=== PATIENT | female | born 1975 | race Caucasian/White ===

== ENCOUNTER 2017-01-13 08:14 | Observation (INO) | payer OTHER ==
[~2017-01-13 08:14] MED LIST: ACETAMINOPHEN 500 MG TAB PO ONE; PREGABALIN 150 MG CAP PO ONE; SCOPOLAMINE HYDROBROMIDE 1.5 MG PATCH TD ONE; TRANEXAMIC ACID 1,000 MG in NS 100 ML IV ONE; ceFAZolin 2 GM/DEXTROSE 100 ML IV ONE
[2017-01-13] MEDS ORDERED: TRANEXAMIC ACID 1,000 MG in NS 100 ML IV ONE (09:00)
[2017-01-13] MEDS ORDERED: BUPIVACAINE/EPI 0.25% 30 ML SDV ONE (09:18)
[2017-01-13] MEDS ORDERED: EPINEPHrine 30 MG/30 ML MDV ONE (09:19)
[2017-01-13] MEDS ORDERED: ACETAMINOPHEN 500 MG TAB ONE (10:07)
[2017-01-13] MEDS ORDERED: SCOPOLAMINE HYDROBROMIDE 1.5 MG PATCH TD ONE (10:08)
[2017-01-13] MEDS ORDERED: CEFAZOLIN 2 GM/DEXTROSE/100 ML BAG IV ONE (10:08)
[2017-01-13] MEDS ORDERED: PREGABALIN 150 MG CAP ONE (10:08)
[2017-01-13 10:50] LABS: HEMATOCRIT 40.6 % (38.0-47.0); HEMOGLOBIN 13.4 g/dL (12.6-16.3)
[2017-01-13] MEDS ORDERED: ONDANSETRON 4 MG/2 ML VIAL ONE ×2 (13:27→14:57)
[2017-01-13] MEDS ORDERED: PROPOFOL 200 MG/20 ML VIAL ONE (13:43)
[2017-01-13] MEDS ORDERED: MIDAZOLAM 2 MG/2 ML VIAL ONE (13:43)
[2017-01-13] MEDS ORDERED: fentaNYL 100 MCG/2 ML INJ ONE ×3 (13:43→16:30)
[2017-01-13] MEDS ORDERED: ONDANSETRON 4 MG/2 ML VIAL IVP ONE (13:45)
[2017-01-13] MEDS ORDERED: ROCURONIUM 50 MG/5 ML VIAL ONE (14:57)
[2017-01-13] MEDS ORDERED: DEXAMETHASONE 4 MG/ML VIAL ONE (14:57)
[2017-01-13] MEDS ORDERED: SUGAMMADEX SODIUM 200 MG/2 ML VIAL IVP ONE (14:58)
[2017-01-13] MEDS ORDERED: KETOROLAC 30 MG/1 ML SDV ONE (17:08)
[2017-01-13] MEDS ORDERED: DIAZEPAM 5 MG TAB ONE (17:08)
[2017-01-13] MEDS ORDERED: HYDROmorphONE/DILAUDID 1 MG/ML SYR ONE (17:08)
[2017-01-13] MEDS ORDERED: DIAZEPAM 2 MG TAB PO PRN (17:11)
[2017-01-13] MEDS ORDERED: NAPROXEN SODIUM 220 MG TAB PO PRN (17:12)
[2017-01-13] MEDS ORDERED: HYDROmorphONE/DILAUDID 6 MG/30 ML PCA IV PRN (17:34)
[2017-01-13] MEDS ORDERED: NALOXONE HCL 0.4 MG/ML INJ IVP PRN (17:34)
[2017-01-14] MEDS ORDERED: HYDROmorphONE/DILAUDID 1 MG/ML SYR IVP PRN ×2 (07:57→08:59)
--- NOTE | 2017-01-14 08:04 | SUROPNOTE ---
ALTHEA Operative Report - Surgery OPERATION NOTE~on Leanne Grant Diagnosis: 1. Right~Femoroacetabular impingement (MICHELLE) Cam type, with~resultant labral tear 2. Right~Hip Dyplasia Indication: Failure to obtain satisfactory results with long standing conservative measures. Operation:~Right~Arthroscopic Labral repair, CAM resection, Synovectomy, Capsular repair Surgeon: ~~~~~~~~~~~~~~~~~~~~~MD Molly Cline Assistant:~~~~~~~~~~~~~Alonso NASSAR Anaesthetic:~~~~~~~~~~~~~~~~~General Findings~~Right~Hip: Labrum: hypertrophic, torn 2-4, yelloish degneration Acetabulum: Cartilage damage grade 1~extending around chondrolabral junction Fovea: Partial tear of LT Femoral Head: Normal cartilage minimal fraying Synovium: mild moderate~synovitis Peripheral Compartment: Anterolateral CAM between 12~Oclock superiorly and 5~O clock anteriorly Procedure: Supine on operating table. General anaesthetic. Antibiotics given. Standard traction set up, without perineal post. A spinal needle was guided to the femoral head neck junction and traction gradually applied with the joint vented. Local anesthetic infiltrated into the skin around the portals. Once 13mm of distraction was achieved the hip needle was then passed into the joint staying as close to the femoral head as possible. A Nytenol wire was passed through the hip needle ensuring that it passed all the way to the fovea to confirm central placement of the needle. Skin was incised and then the portals sequentially dilated to 7 mm. Switching stick inserted and 30 scope passed over the top. Under dry scope conditions the anterior portal was created by passing the hip needle into the joint under direct vision. Again this was dilated up to 7 mm and the slotted canule was inserted. The saline was then turned on and the joint irrigated. The joint was carefully inspected and photographed with findings as above. The arthroscope was switched to the 70 scope to complete the inspection. A longitudinal intra portal capsulotomy was then performed using osage blade and the 50 Arthrocare wand to connect the two portals. Central Compartment Intervention: Synovectomy was performed. ~The labrum was then repaired~with 1~peek anchor insideout, achieving good anatomical rim fixation. LT was treated with RF wand to shrink and stabilize reactive tissue.~ Peripheral Compartment Intervention: A box-shaped capsulotomy was made with the assistance of SpeedStitch traction suture. This allowed traction on the capsule and a good view of the femoral neck with smaller capsulotomy. The articular margin where sphericity was lost was marked with the Arthrocare wand under X-ray control. Bone lateral to this was removed with the the balwinder. Portals were switched to deal with the superior headneck junction. Care was taken not to stray posterior and laterally in view of the location of the retinacular vessels. The cam lesion was addressed from 12~to 5~Oclock. A dynamic impingement test was undertaken and vision with 90 of flexion and 10 of internal rotation to confirm that there was no bony or soft tissue impingement or deformation of the labrum. ~Good clearance was obtained with good labral seal. The joint was thoroughly irrigated of any loose debris and the anterior capsule was repaired with 2~No.1 vicryl stitches, closing 70% of the capsulotomy. The skin was then closed with Nylon. Padded dressing was applied. After surgery, Leanne~moved both lower limbs and had no NV compromise. Evaluation under Anesthesia: Pre: IR 90 ER 90 ABD Flexion Right 15 45 45 110 Left 25 45 40 110 Post op instructions: 1. Non~weight bearing crutches for 2~weeks 2. Pain killers as prescribed 3. Follow up visit with me, as scheduled, where a rehab protocol would be discussed 4. Avoid hip external rotation for 4 weeks 5. ~~25 days of NSAIDS need to be taken in order to prevent the possible formation of HO Kind regards, ~~ Dr. Franko Sawyer
[2017-01-14] MEDS: ONDANSETRON 4 MG/2 ML VIAL IVP PRN (08:18)
[2017-01-14] MEDS ORDERED: PROMETHAZINE HCL 25 MG/ML INJ IVP PRN ×2 (09:00)
[2017-01-14] MEDS: OXYCODONE/APAP 5/325 TAB PO PRN ×2 (10:50→16:43)
[2017-01-14 11:36] LABS: ANION GAP 8 mEq/L (8-16); CARBON DIOXIDE 22 mEq/l (22-31); CHLORIDE 104 mEq/L (97-110); CREATININE 0.7 mg/dL (0.6-1.0); GLOMERULAR FILTRATION RATE > 60; GLUCOSE 96 mg/dL (70-100); SODIUM 134 mEq/L (134-144)
[2017-01-14] MEDS: ONDANSETRON DISINTEGRATING 4 MG TAB PO PRN ×2 (11:39→15:58)
[2017-01-14] MEDS ORDERED: POLYETHYLENE GLYCOL 3350 17 GM PKT PO PRN (18:29)
[2017-01-14] MEDS ORDERED: MAGNESIUM HYDROXIDE 30 ML UDCUP PO PRN (18:29)
[2017-01-14] MEDS ORDERED: LACTULOSE 20 GM/30 ML UDCUP PO PRN (18:29)
[2017-01-14] MEDS ORDERED: BISACODYL 10 MG SUPP PR PRN (18:29)
[2017-01-14] MEDS: HYDROmorphONE/DILAUDID 2 MG TAB PO PRN ×2 (19:01→23:08)
[2017-01-14] MEDS: ACETAMINOPHEN 325 MG TAB PO PRN (19:16)
[2017-01-14] MEDS: SENNOSIDES/DOCUSATE SODIUM TAB PO SCH (19:16)
--- NOTE | 2017-01-14 21:02 | SOAPPROG ---
GEORGES Progress Note Assessment/Plan: Assessment: 1 day post op Right hip arthroscopy Plan: will discontinue Percocet and add Dilaudid 2mg Bowel Protocol D/C tomorrow IRVING on Monday01/14/17 20:53 Subjective: Yury has had nausea and pain most of the day. She thinks the Percocet is causing nausea and is not controlling her pain. She is not ready to be discharged today. She denies any cp or sob. Objective: Vital Signs Temp Pulse Resp BP Pulse Ox 36.9 C 65 18 103/62 100 01/14/17 19:32 01/14/17 19:32 01/14/17 19:32 01/14/17 19:32 01/14/17 19:32 Laboratory Results 01/13/17 10:40 01/14/17 11:04 01/13/17 01/14/17 01/15/17 05:59 05:59 05:59 Intake Total 2049 1000 Output Total 1951 525 Balance 98 475 Well appearing in NAD Right hip: dressings clean dry intact some ecchymosis and edema NVI distally - Pending Discharge Pending Discharge Within 24 Hours: Yes Pending Discharge Date: 01/15/17 Pending Discharge Time: 11:00 ICD10 Worksheet Patient Problems: Problems Problem Status Onset Post-operative pain Acute - ICD10 Problem Qualifiers (1) Post-operative pain
[2017-01-15] MEDS: HYDROmorphONE/DILAUDID 2 MG TAB PO PRN ×2 (04:15→10:14)
[2017-01-15] MEDS: ACETAMINOPHEN 325 MG TAB PO PRN ×2 (06:56→12:58)
[2017-01-15 07:30] VITALS: BP 122/68; PULSE 65; RESP 14; TEMP 98.2; O2SAT 97
[2017-01-15] MEDS: SENNOSIDES/DOCUSATE SODIUM TAB PO SCH ×2 (07:49→12:57)
[2017-01-15] MEDS: ONDANSETRON 4 MG/2 ML VIAL IVP PRN (07:53)
[2017-01-15] MEDS: ONDANSETRON DISINTEGRATING 4 MG TAB PO PRN (10:14)
== END 2017-01-15 13:02 | disposition home or self-care (01) ==
LOC: FSGY 08:14 → F3N 17:19
PROVIDERS: ADMIT Orthopaedic Surgery Sports Medicine; ATTEND Orthopaedic Surgery Sports Medicine
PROC: 0SQ94ZZ Repair Right Hip Joint, Percutaneous Endoscopic Approach (ICD-10-PCS; principal; 2017-01-13 12:00)
DX: M25.851 Other specified joint disorders, right hip (principal); M24.151 Other articular cartilage disorders, right hip
CPT/HCPCS: 29914; 29916; 76001; 97116; 97161; C1769; G0378; C1713; J0690; J1100; J1170; J1885; J2250; J2405; J2704; J3010

== ENCOUNTER 2017-01-16 11:00 | Inpatient (IN) | payer OTHER ==
[2017-01-16] MEDS ORDERED: fentaNYL 100 MCG/2 ML INJ IVP PRN ×3 (12:01→17:51)
[2017-01-16] MEDS ORDERED: fentaNYL 100 MCG/2 ML INJ ONE ×2 (12:09→14:09)
[2017-01-16] MEDS ORDERED: PREGABALIN 150 MG CAP PO ONE (12:30)
--- NOTE | 2017-01-16 12:44 | PDGENHP ---
History and Physical - Chief Complaint Right Hip Pain History Information - Allergies/Home Medication List Allergies/Adverse Reactions: No Known Allergies Allergy (Unverified 12/16/16 12:17) Home Medications: Ibuprofen [Motrin (*)] 200 - 400 mg PO QID PRN 12/16/16 [Last Taken 01/06/17] I have personally reviewed and updated: medical history - Social History Smoking Status: Former smoker Review of Systems Constitutional: Reports: no symptoms EENMT: Reports: no symptoms Cardiac: Reports: no symptoms Respiratory: Reports: no symptoms Gastrointestinal: Reports: no symptoms Genitourinary: Reports: no symptoms Muscolosketal: Reports: no symptoms Skin: Reports: no symptoms Neurological: Reports: no symptoms Hematologic/Lymphatic: Reports: no symptoms Immunologic/Allergy: Reports: no symptoms Physical Exam Temp Pulse Resp BP Pulse Ox 36.8 C 65 14 107/65 96 01/16/17 11:38 01/16/17 11:38 01/16/17 11:38 01/16/17 11:38 01/16/17 11:38 Constitutional: no apparent distress Eyes: PERRL Cardiovascular: regular rate and rhythym Respiratory: no respiratory distress, clear to auscultation Gastrointestinal: soft, non-tender abdomen Skin: normal color Neurologic: AAOx3 Psychiatric: interacting appropriately Assessment & Plan Assessment: Right hip dysplasia Plan: Right IRVING
[2017-01-16] MEDS ORDERED: SCOPOLAMINE HYDROBROMIDE 1.5 MG PATCH TD ONE (12:45)
[2017-01-16] MEDS ORDERED: ACETAMINOPHEN 500 MG TAB PO ONE (12:45)
[2017-01-16] MEDS ORDERED: ceFAZolin 2 GM/DEXTROSE 100 ML IV ONE (13:00)
[2017-01-16] MEDS ORDERED: TRANEXAMIC ACID 1,000 MG in NS 100 ML IV ONE (13:00)
[2017-01-16] MEDS ORDERED: MIDAZOLAM 2 MG/2 ML VIAL IVP ONE ×3 (13:03→17:54)
--- NOTE | 2017-01-16 13:03 | PDANEPAE ---
ANE History of Present Illness hip dysplasia ANE Past Medical History - Cardiovascular History Hx Hypertension: No Hx Arrhythmias: No Hx Chest Pain: No Hx Coronary Artery / Peripheral Vascular Disease: No Hx CHF / Valvular Disease: No Hx Palpitations: No - Pulmonary History Hx COPD: No Hx Asthma/Reactive Airway Disease: No Hx Recent Upper Respiratory Infection: No Hx Oxygen in Use at Home: No - Neurologic History Hx Cerebrovascular Accident: No Hx Seizures: No Hx Dementia: No - Endocrine History Hx Diabetes: No - Renal History Hx Renal Disorders: No - Liver History Hx Hepatic Disorders: No - Neurological & Psychiatric Hx Hx Neurological and Psychiatric Disorders: No - Cancer History Hx Cancer: No - Congenital Disorder History Hx Congenital Disorders: No - GI History Hx Gastrointestinal Disorders: No - Chronic Pain History Chronic Pain: Yes ANE Review of Systems - Exercise capacity METS (RN): 4 METS (4+ mets) ANE Patient History - Allergies Allergies/Adverse Reactions: No Known Allergies Allergy (Unverified 12/16/16 12:17) - Home Medications Home Medications: Ibuprofen [Motrin (*)] 200 - 400 mg PO QID PRN 12/16/16 [Last Taken 01/06/17] - NPO status NPO Since - Liquids (Date): 01/15/17 NPO Since - Liquids (Time): 22:00 NPO Since - Solids (Date): 01/15/17 NPO Since - Solids (Time): 22:00 - Anes Hx Anes Hx: no prior problems - Smoking Hx Smoking Status: Former smoker (quit 2001) - Family Anes Hx Family Hx Anesthesia Complications: none ANE Labs/Vital Signs - Labs - CBC WBC: cbc reviewed and okay - Labs - BMP Sodium: bmp reviewed and okay - Vital Signs Blood Pressure: 107/65 Heart Rate: 65 Respiratory Rate: 14 O2 Sat (%): 96 Height: 157.48 cm Weight: 58.967 kg ANE Physical Exam - Airway Neck exam: FROM Mallampati Score: Class 1 Mouth exam: normal dental/mouth exam - Pulmonary Pulmonary: no respiratory distress - Cardiovascular Cardiovascular: regular rate and rhythym - ASA Status ASA Status: I ANE Anesthesia Plan Anesthesia Plan: general endotracheal anesthesia, epidural (PSR POPR)
[2017-01-16] MEDS ORDERED: DEXAMETHASONE 4 MG/ML VIAL ONE ×2 (13:33)
[2017-01-16] MEDS ORDERED: REMIFENTANIL HCL 1 MG VIAL ONE (13:33)
[2017-01-16] MEDS ORDERED: PROPOFOL/EMULSION 500 MG/50 ML BOTTLE IV ONE (13:33)
[2017-01-16] MEDS ORDERED: ONDANSETRON 4 MG/2 ML VIAL ONE (13:34)
[2017-01-16] MEDS ORDERED: LIDOCAINE HCL 160 MG/4 ML LTA KIT TP ONE (13:34)
[2017-01-16] MEDS ORDERED: LIDOCAINE 2% 100 MG/5 ML SYR ONE (13:34)
[2017-01-16] MEDS ORDERED: ROPIVACAINE HCL 150 MG/30 ML INJ ONE (13:39)
[2017-01-16] MEDS ORDERED: MIDAZOLAM 2 MG/2 ML VIAL ONE ×2 (13:57)
[2017-01-16] MEDS ORDERED: epHEDrine SULFATE 10 MG/ML SYR ONE ×3 (14:31→17:09)
[2017-01-16] MEDS ORDERED: CITRATE DEXTROSE SOLN 500 ML BAG ONE (14:46)
[2017-01-16] MEDS ORDERED: HYDROmorph 10MCG/ML&BUP 0.05% in 100ML NS EP SCH (15:40)
[2017-01-16] MEDS ORDERED: ONDANSETRON 4 MG/2 ML VIAL IVP PRN ×3 (15:40→18:18)
[2017-01-16] MEDS ORDERED: diphenhydrAMINE 25 MG CAP PO PRN (15:40)
[2017-01-16] MEDS ORDERED: NARCOTIC DRIP BAG-TOTAL ALL TYPES EP PRN (15:40)
[2017-01-16] MEDS ORDERED: METOCLOPRAMIDE 10 MG/2 ML VIAL IVP PRN ×2 (15:40→17:51)
[2017-01-16] MEDS ORDERED: PROPOFOL 200 MG/20 ML VIAL ONE (17:04)
[2017-01-16] MEDS ORDERED: LABETALOL HCL 5 MG/ML 20 ML MDV IVP PRN (17:51)
[2017-01-16] MEDS ORDERED: OXYCODONE/APAP 5/325 TAB PO PRN (17:51)
[2017-01-16] MEDS ORDERED: HYDROCODONE/APAP 5/325 TAB PO PRN (17:51)
[2017-01-16] MEDS ORDERED: LR 500 ML IV PRN (17:51)
[2017-01-16] MEDS ORDERED: MEPERIDINE 25 MG/ML SYR IVP PRN (17:51)
[2017-01-16] MEDS ORDERED: NALOXONE HCL 0.4 MG/ML INJ IVP PRN (17:51)
[2017-01-16] MEDS ORDERED: ALBUTEROL 3 ML DEYVIAL IH PRN (17:51)
[2017-01-16] MEDS ORDERED: DEXAMETHASONE 4 MG/ML VIAL IVP PRN (17:51)
[2017-01-16] MEDS ORDERED: PROMETHAZINE HCL 25 MG/ML INJ IVP PRN (17:51)
[2017-01-16] MEDS ORDERED: BISACODYL 10 MG SUPP PR PRN (18:18)
[2017-01-16] MEDS ORDERED: MAGNESIUM HYDROXIDE 30 ML UDCUP PO PRN (18:18)
[2017-01-16] MEDS ORDERED: POLYETHYLENE GLYCOL 3350 17 GM PKT PO PRN (18:18)
[2017-01-16] MEDS ORDERED: ACETAMINOPHEN 325 MG TAB PO PRN (18:18)
[2017-01-16] MEDS ORDERED: LACTULOSE 20 GM/30 ML UDCUP PO PRN (18:18)
[2017-01-16] MEDS: DIAZEPAM 2 MG TAB PO PRN (21:02)
[2017-01-16] MEDS: SENNOSIDES/DOCUSATE SODIUM TAB PO SCH (21:02)
--- NOTE | 2017-01-16 21:46 | POSTANESTH ---
Post Anesthetic Evaluation Cardiovascular Status: Normal, Stable Respiratory Status: Normal, Stable (O2 by NC per protocol) Level of Consciousness/Mental Status: Can Participate in Eval, Mildly Sleepy, Arousable Pain Control: Adequate, Prn Tx Ordered (crista WALKER) Nausea/Vomiting Control: Adequate, Prn Tx Ordered Complications Possibly Related to Anesthesia: None Noted
--- NOTE | 2017-01-16 22:30 | SUROPNOTE ---
ALTHEA Operative Report - Surgery Surgery was performed at [facility] 01/16/17 Diagnosis: Right 1. Hip Acetabular Dysplasia Operation: Right~Fabiola Acetabular Osteotomy (IRVING) Surgeon: Franko Sawyer MD Manager Process Improvement:~~Alonso NASSAR Anesthetic: General + epidural Procedure: General anesthetic. Antibiotics given. Cell saver in use. Fluoroscopy. Phase 1: Position lateral, diagonal skin incision between ischial tuberosity and greater trochanter as for posterior hip approach. Blunt split of glut max fibers. Identification of fat pad overlying sciatic nerve. Exposure of sciatic nerve under fat pad, gently retracting it away-medially to ischial tuberosity. Exposure of subcotoloid fossa proximal to short rotators. Using osteotomes and under fluoroscopy, osteotomy of subcotoloid fossa to sciatic notch proximal to ischial spine. Closure of lateral cut. Patient is turned supine. Phase 2: Skin incision just distal to ASIS. Using diathermy the iliac spine was exposed and inguinal ligament + Sartorious were retracted medially, taking the LFCN with them, protecting it. Inner ilium was dissected from iliacus muscle bluntly , with a cob and swab. Dissection continued towards lateral superior ramus pubis. Using fluoroscopy an osteotomy of lateral superior ramus, just medial to tear drop, was performed with curved fish mouth osteotome. Phase 3: Osteotomy lines of the ilium were marked with diathermy as pre planned according to XR/CT and expected correction of acatabulum. 2 Shanz screws were drilled into central acetabular fragment, corresponding with planned correction angles, in order to mobilize central acetabular fragment after osteotomy is complete. ~Iliac osteotomy was performed with reciprocating saw and the main acetabular fragment was moved to realign weight bearing position. After confirmation of correction using fluoroscopy in AP and false profile planes, the fragment was fixed with 3 - 5.5mm ~full threaded~screws~ Inguinal ligament and Sartorious were attached back to ASIS through drill holes. Incision was closed according to soft tissue layers. Skin was closed with subdermal Monocryl. Final fluoro shots were obtained to confirm position/correction. After surgery Leanne~moved both lower limbs and had no NV motor compromise. Evaluation under anesthesia: IR at 90 degrees hip flexion prior to IRVING was 20~degrees and after IRVING was 15~ degrees. Bleedin~cc into cell-saver, 0~of blood products were returned to patient. Post op instructions: 1. Non~weight bearing crutches for 6 weeks 2. Epidural analgesia for 24-48 hours 3. Continuous SCD 4. Aspirin 81 mg X1 day once Epidural is discontinued 5. Avoid hip flexion past 80~and hip External rotation. 6. PT according to my recommendations at follow up visit Kind regards, Dr. Franko Sawyer
[2017-01-17 05:52] LABS: HEMATOCRIT 33.7 % (38.0-47.0); HEMOGLOBIN 10.9 g/dL (12.6-16.3); MEAN CELL HEMOGLOBIN 28.3 pg (27.9-34.1); MEAN CELL HEMOGLOBIN CONCENTR. 32.3 g/dL (32.4-36.7); MEAN CELL VOLUME 87.5 fL (81.5-99.8); RED BLOOD CELL COUNT 3.85 10^6/uL (4.18-5.33); RED CELL DISTRIBUTION WIDTH 13.5 % (11.5-15.2)
[2017-01-17] MEDS: DIAZEPAM 2 MG TAB PO PRN ×2 (08:26→16:04)
[2017-01-17] MEDS ORDERED: oxyCODONE IR 5 MG TAB ONE (08:42)
[2017-01-17] MEDS ORDERED: oxyCODONE IR 5 MG TAB PO ONE (09:00)
[2017-01-17] MEDS: REGARDING ANTICOAG MISC SCH (09:26)
[2017-01-17] MEDS: DC NARCS MISC SCH (09:26)
[2017-01-17] MEDS ORDERED: HYDROmorphONE/DILAUDID 1 MG/ML SYR ONE (09:39)
[2017-01-17] MEDS ORDERED: HYDROmorphONE/DILAUDID 1 MG/ML SYR IVP ONE (09:45)
[2017-01-17 09:55] LABS: ANION GAP 10 mEq/L (8-16); CALCIUM 9.2 mg/dL (8.5-10.4); CARBON DIOXIDE 22 mEq/l (22-31); CHLORIDE 102 mEq/L (97-110); CREATININE 0.6 mg/dL (0.6-1.0); GLOMERULAR FILTRATION RATE > 60; GLUCOSE 150 mg/dL (70-100); POTASSIUM 4.3 mEq/L (3.5-5.2); SODIUM 134 mEq/L (134-144)
[2017-01-17] MEDS ORDERED: BUPIVACAINE 0.25% 30 ML SDV EP ONE (11:00)
[2017-01-17] MEDS ORDERED: SKIN ADHESIVE (DERMABOND) 1 EACH TP ONE (11:00)
[2017-01-17] MEDS: SENNOSIDES/DOCUSATE SODIUM TAB PO SCH ×2 (12:47→21:42)
[2017-01-17] MEDS: BUPIVACAINE 0.5% EP SCH (17:34)
[2017-01-17] MEDS: NS EP SCH (17:34)
[2017-01-17] MEDS: HYDROMORPHONE HCL EP SCH (17:34)
[2017-01-17] MEDS: DIAZEPAM 5 MG TAB PO SCH ×2 (21:42→23:05)
[2017-01-18] MEDS: NS EP SCH ×2 (00:54→14:00)
[2017-01-18] MEDS: HYDROMORPHONE HCL EP SCH ×2 (00:54→14:00)
[2017-01-18] MEDS: BUPIVACAINE 0.5% EP SCH ×2 (00:54→14:00)
[2017-01-18] MEDS: DIAZEPAM 5 MG TAB PO SCH ×7 (03:32→23:44)
[2017-01-18] MEDS: REGARDING ANTICOAG MISC SCH (07:36)
[2017-01-18] MEDS: DC NARCS MISC SCH (07:36)
--- NOTE | 2017-01-18 07:48 | SOAPPROG ---
SOAP Progress Note Assessment/Plan: Assessment: it was unclear of the source of the sero-sanguinous fluid.however, the epidural still appear to be in place and functioning. Plan: The dressing was taken down, the back was cleaned sterilely, derma cruz was applied to the catheter insertion site and a new dressing was applied. After application of addressing 10 mL of quarter percent you put the raul was injected with good pain relief. After that The infusion was reinstated any hiring. No further leaking with observed Will revisit the patient tomorrow with the expectation of continuing the epidural until at least 01/18/17 07:50 Subjective: late entry for visit on 01/17/17 @ [id number] pt c/o poor pain relief and poor pain relief with the epidural. Objective: Vital Signs Temp Pulse Resp BP Pulse Ox 37.1 C 83 15 106/53 L 93 01/18/17 04:00 01/18/17 06:00 01/18/17 06:00 01/18/17 06:00 01/18/17 06:00 Laboratory Results 01/17/17 05:15 01/17/17 05:25 01/17/17 01/18/17 01/19/17 05:59 05:59 05:59 Intake Total 2150 2500 Output Total 3600 2950 Balance -1450 -450 on examination, the epidural was still 12 years at the skin and so did not appear to be displaced. There was a large collection of serosanguinous fluid under the large opsite of unclear eitiology - Pending Discharge Pending Discharge Within 24 Hours: No Pending Discharge Within 48 Hours: No ICD10 Worksheet Patient Problems: Problems Problem Status Onset Post-operative pain Acute
[2017-01-18] MEDS: SENNOSIDES/DOCUSATE SODIUM TAB PO SCH ×2 (08:36→19:53)
--- NOTE | 2017-01-18 09:33 | SOAPPROG ---
SOAP Progress Note Assessment/Plan: Assessment: 1 day post op Right Periacetabular Osteotomy Plan: Wean down epidural per anesthesia, transition to oral analgesics Up with PT/OT Pelvis Xray 01/18/17 09:29 Subjective: Yury was seen yesterday at 1830. At that time her pain was not as well controlled as she would have liked. Dr. Alvarez doubled the concentration in the epidural bag after doing a lidocaine test to ensure placement of catheter. She denied any cp, sob or nausea. Objective: Vital Signs Temp Pulse Resp BP Pulse Ox 37.7 C 91 16 92/55 L 95 01/18/17 08:00 01/18/17 08:00 01/18/17 08:00 01/18/17 08:00 01/18/17 08:00 Laboratory Results 01/17/17 05:15 01/17/17 05:25 01/17/17 01/18/17 01/19/17 05:59 05:59 05:59 Intake Total 2150 2500 Output Total 3600 2950 Balance -1450 -450 well appearing in NAD Right hip: dressings clean dry intact some surrounding edema NVI distally Full ROM of foot and ankle - Pending Discharge Pending Discharge Within 48 Hours: Yes Pending Discharge Date: 01/20/17 Pending Discharge Time: 11:00 ICD10 Worksheet Patient Problems: Problems Problem Status Onset Post-operative pain Acute
[2017-01-18] MEDS ORDERED: HYDROmorphONE/DILAUDID 2 MG TAB PO PRN (12:57)
[2017-01-18] MEDS ORDERED: TAPENTADOL HCL 50 MG TAB PO PRN (12:57)
[2017-01-18] MEDS ORDERED: traMADol 50 MG TAB PO PRN (12:57)
[2017-01-18] MEDS ORDERED: oxyCODONE IR 15 MG TAB PO PRN (12:57)
[2017-01-18] MEDS: ONDANSETRON DISINTEGRATING 4 MG TAB PO PRN (14:15)
[2017-01-18] MEDS: HYDROmorphONE/DILAUDID 4 MG TAB PO SCH ×3 (15:40→23:44)
[2017-01-18] MEDS: HYDROmorphONE/DILAUDID 1 MG/ML SYR IVP SCH ×10 (15:51→23:49)
--- NOTE | 2017-01-18 17:16 | SOAPPROG ---
SOAP Progress Note Assessment/Plan: Assessment: it was unclear of the source of the sero-sanguinous fluid.however, the epidural still appear to be in place and functioning. Plan: The dressing was taken down, the back was cleaned sterilely, derma cruz was applied to the catheter insertion site and a new dressing was applied. After application of addressing 10 mL of quarter percent you put the raul was injected with good pain relief. After that The infusion was reinstated any hiring. No further leaking with observed Will revisit the patient tomorrow with the expectation of continuing the epidural until at least 01/18/17 07:50 01/18/17 17:15 epidural infusion off since 1300. Pain much increased. After discussion the patient feels well enough to pull the DENISE tonight. Cath out tip intact site clean and dry dematomes returned Objective: Vital Signs Temp Pulse Resp BP Pulse Ox 37.7 C 92 16 108/62 94 01/18/17 15:55 01/18/17 15:55 01/18/17 15:55 01/18/17 15:55 01/18/17 15:55 Laboratory Results 01/17/17 05:15 01/17/17 05:25 01/17/17 01/18/17 01/19/17 05:59 05:59 05:59 Intake Total 2150 2500 Output Total 3600 2950 1500 Balance -1450 -450 -1500 ICD10 Worksheet Patient Problems: Problems Problem Status Onset Post-operative pain Acute
[2017-01-18] MEDS: ASPIRIN EC 81 MG TAB PO SCH (17:45)
[2017-01-18] MEDS: morphINE SR 15 MG TAB PO SCH (19:53)
--- NOTE | 2017-01-18 21:18 | SOAPPROG ---
SOAP Progress Note Assessment/Plan: Assessment: 2ND day post op Right Periacetabular Osteotomy Plan: Epidural out per anesthesia IVP Dilaudid 0.2-0.5 Q1hr Dilaudid 4-8mg PO Q4hrs Up with PT/OT Pelvis Xray 01/18/17 09:29 01/18/17 21:15 Subjective: Leanne seen at 1545 today. The epidural had just been turned off. She was having nausea and pain but both appeared to be managed. She denies any cp or sob, ready to get epidural out. Objective: Vital Signs Temp Pulse Resp BP Pulse Ox 37.4 C 87 15 115/63 94 01/18/17 19:55 01/18/17 19:55 01/18/17 19:55 01/18/17 19:55 01/18/17 19:55 Laboratory Results 01/17/17 05:15 01/17/17 05:25 01/17/17 01/18/17 01/19/17 05:59 05:59 05:59 Intake Total 2150 2500 Output Total 3600 2950 2900 Balance -1450 -450 -2900 Well appearing in NAD Right hip: dressings clean dry intact surrounding ecchymosis and edema NVI distally Full ROM of foot and ankle - Pending Discharge Pending Discharge Within 48 Hours: Yes Pending Discharge Date: 01/20/17 Pending Discharge Time: 11:00 ICD10 Worksheet Patient Problems: Problems Problem Status Onset Post-operative pain Acute
[2017-01-19] MEDS: HYDROmorphONE/DILAUDID 1 MG/ML SYR IVP SCH ×9 (00:49→08:05)
[2017-01-19] MEDS: DIAZEPAM 5 MG TAB PO SCH ×4 (04:01→19:36)
[2017-01-19] MEDS: HYDROmorphONE/DILAUDID 4 MG TAB PO SCH ×7 (04:01→21:49)
[2017-01-19] MEDS: REGARDING ANTICOAG MISC SCH (08:05)
[2017-01-19] MEDS: DC NARCS MISC SCH (08:05)
[2017-01-19] MEDS: SENNOSIDES/DOCUSATE SODIUM TAB PO SCH ×2 (08:13→19:35)
[2017-01-19] MEDS: morphINE SR 15 MG TAB PO SCH ×2 (08:13→19:36)
[2017-01-19] MEDS: ASPIRIN EC 81 MG TAB PO SCH (08:13)
[2017-01-19] MEDS: ONDANSETRON DISINTEGRATING 4 MG TAB PO PRN ×2 (09:45→19:50)
[2017-01-19] MEDS: HYDROmorphONE/DILAUDID 1 MG/ML SYR IVP PRN ×2 (15:27→21:54)
--- NOTE | 2017-01-19 15:34 | SOAPPROG ---
SOAP Progress Note Assessment/Plan: Assessment: 3rd day post op Right Periacetabular Osteotomy Plan: Up with PT/OT Oral analgesics Home in 1-2 days 01/18/17 09:29 01/18/17 21:15 01/19/17 15:31 Subjective: Leanne is doing better today, although she still has nausea and pain. The oral Dilaudid is working well thus far. She denies any cp or sob. She's been up to the bathroom today now that her Rodas is out. Objective: Vital Signs Temp Pulse Resp BP Pulse Ox 36.8 C 71 18 102/52 L 93 01/19/17 11:47 01/19/17 11:47 01/19/17 11:47 01/19/17 11:47 01/19/17 11:47 Laboratory Results 01/17/17 05:15 01/17/17 05:25 01/18/17 01/19/17 01/20/17 05:59 05:59 05:59 Intake Total 2500 500 Output Total 2950 5800 Balance -450 -5300 Well appearing in NAD Right hip: dressings clean dry intact some surrounding ecchymosis LFCN numbness down to knee NVI distally Full ROM of foot and ankle - Pending Discharge Pending Discharge Within 48 Hours: Yes Pending Discharge Date: 01/21/17 Pending Discharge Time: 11:00 ICD10 Worksheet Patient Problems: Problems Problem Status Onset Post-operative pain Acute
[2017-01-20] MEDS: HYDROmorphONE/DILAUDID 4 MG TAB PO SCH ×4 (01:08→11:42)
[2017-01-20] MEDS: DIAZEPAM 5 MG TAB PO SCH ×2 (04:12→08:22)
[2017-01-20] MEDS: SENNOSIDES/DOCUSATE SODIUM TAB PO SCH (08:22)
[2017-01-20] MEDS: morphINE SR 15 MG TAB PO SCH (08:22)
[2017-01-20] MEDS: ASPIRIN EC 81 MG TAB PO SCH (08:22)
[2017-01-20] MEDS: REGARDING ANTICOAG MISC SCH (09:51)
[2017-01-20] MEDS: DC NARCS MISC SCH (09:51)
[2017-01-20 12:15] VITALS: BP 97/60; PULSE 60; RESP 14; TEMP 98; O2SAT 95
== END 2017-01-20 14:01 | disposition home or self-care (01) | DRG 517 ==
LOC: F3E 11:00 → F3N 20:09
PROVIDERS: ADMIT Orthopaedic Surgery Sports Medicine; ATTEND Orthopaedic Surgery Sports Medicine
PROC: 0Q840ZZ Division of Right Acetabulum, Open Approach (ICD-10-PCS; principal; 2017-01-16 12:30)
DX: Q65.89 Other specified congenital deformities of hip (principal); Z87.891 Personal history of nicotine dependence
CPT/HCPCS: 97116-GP; 97161-GP; 97165-GO; 97535-GO; C1713; J0690; J1100; J1170; J2001; J2250; J2405; J2704; J2765; J2795; J3010; J7060

== ENCOUNTER 2017-01-20 15:19 | Observation (INO) | payer OTHER ==
[2017-01-20] MEDS ORDERED: ONDANSETRON DISINTEGRATING 4 MG TAB PO PRN (16:19)
[2017-01-20] MEDS ORDERED: ONDANSETRON 4 MG/2 ML VIAL IVP PRN (16:19)
[2017-01-20] MEDS ORDERED: D5W 1/2 NS W/ 20 KCl/L 1,000 ML IV SCH (16:30)
[2017-01-20] MEDS ORDERED: BISACODYL 10 MG SUPP PR PRN (17:32)
[2017-01-20] MEDS ORDERED: LACTULOSE 20 GM/30 ML UDCUP PO PRN (17:32)
[2017-01-20] MEDS ORDERED: MAGNESIUM HYDROXIDE 30 ML UDCUP PO PRN (17:32)
[2017-01-20] MEDS ORDERED: PROMETHAZINE HCL 25 MG/ML INJ IVP PRN (17:34)
[2017-01-20] MEDS: DIAZEPAM 5 MG TAB PO PRN (19:27)
[2017-01-20] MEDS: SENNOSIDES/DOCUSATE SODIUM TAB PO SCH (19:27)
[2017-01-20] MEDS: HYDROmorphONE/DILAUDID 4 MG TAB PO PRN ×2 (20:08→23:24)
[2017-01-20] MEDS: HYDROmorphONE/DILAUDID 1 MG/ML SYR IVP PRN (20:08)
--- NOTE | 2017-01-20 21:06 | SOAPPROG ---
SOAP Progress Note Assessment/Plan: Assessment: Plan: 01/20/17 21:04 I saw murtaza today after she was readmitted. She was discharged this morning POD 4, but retuned right away due to vomiting and nausea. She is now in bed, comfortable pain dunn, NV intact, just weak. We will work on helping with GI issues, manage pain, and probably keep her over the weekend. Dr Sawyer Objective: Vital Signs Temp Pulse Resp BP Pulse Ox 36.9 C 84 14 104/60 97 01/20/17 19:37 01/20/17 19:37 01/20/17 19:37 01/20/17 19:37 01/20/17 19:37 ICD10 Worksheet Patient Problems: Problems Problem Status Onset Post-operative pain Acute
[2017-01-21] MEDS: HYDROmorphONE/DILAUDID 4 MG TAB PO PRN ×6 (03:54→21:31)
[2017-01-21] MEDS: DIAZEPAM 5 MG TAB PO PRN ×3 (08:59→21:31)
[2017-01-21] MEDS: HYDROmorphONE/DILAUDID 1 MG/ML SYR IVP PRN (08:59)
[2017-01-21] MEDS: ASPIRIN 81 MG CHEWABLE TAB PO SCH (10:20)
[2017-01-21] MEDS: SENNOSIDES/DOCUSATE SODIUM TAB PO SCH ×2 (10:20→21:31)
[2017-01-21] MEDS: ACETAMINOPHEN 325 MG TAB PO PRN (15:52)
[2017-01-21] MEDS: POLYETHYLENE GLYCOL 3350 17 GM PKT PO PRN (21:32)
[2017-01-22] MEDS: HYDROmorphONE/DILAUDID 4 MG TAB PO PRN ×8 (01:11→21:56)
[2017-01-22] MEDS: ACETAMINOPHEN 325 MG TAB PO PRN ×2 (02:14→16:19)
[2017-01-22] MEDS: DIAZEPAM 5 MG TAB PO PRN ×4 (02:14→21:55)
[2017-01-22] MEDS: ONDANSETRON DISINTEGRATING 4 MG TAB PO PRN ×2 (08:12→16:14)
[2017-01-22] MEDS: ASPIRIN 81 MG CHEWABLE TAB PO SCH (08:13)
[2017-01-22] MEDS: POLYETHYLENE GLYCOL 3350 17 GM PKT PO PRN (08:13)
[2017-01-22] MEDS: SENNOSIDES/DOCUSATE SODIUM TAB PO SCH ×2 (08:13→21:56)
[2017-01-22] MEDS: NAPROXEN SODIUM 220 MG TAB PO SCH ×2 (16:14→21:55)
[2017-01-23] MEDS: HYDROmorphONE/DILAUDID 4 MG TAB PO PRN ×5 (01:53→12:10)
[2017-01-23] MEDS: DIAZEPAM 5 MG TAB PO PRN ×2 (05:14→12:10)
[2017-01-23 08:09] VITALS: BP 90/48; PULSE 75; RESP 16; TEMP 98; O2SAT 99
[2017-01-23] MEDS: ASPIRIN 81 MG CHEWABLE TAB PO SCH (09:01)
[2017-01-23] MEDS: NAPROXEN SODIUM 220 MG TAB PO SCH (09:01)
[2017-01-23] MEDS: SENNOSIDES/DOCUSATE SODIUM TAB PO SCH (09:01)
--- NOTE | 2017-01-23 09:51 | SOAPPROG ---
GEORGES Progress Note Assessment/Plan: Assessment: 7th post op day Right Periacetabular Osteotomy Plan: Pelvis xray today D/C home 01/23/17 09:49 Subjective: Leanne is doing much better today. Her pain is well controlled with the Dilaudid PO, she denies any cp, sob, or nausea and is ready to go home. Objective: Vital Signs Temp Pulse Resp BP Pulse Ox 36.7 C 75 16 90/48 L 99 01/23/17 08:00 01/23/17 08:00 01/23/17 08:00 01/23/17 08:00 01/23/17 08:00 01/22/17 01/23/17 01/24/17 05:59 05:59 05:59 Intake Total 300 400 Balance 300 400 well appearing in NAD Right hip: dressings clean dry intact surrounding ecchymosis and edema some LFCN numbness down to right knee NVI distally Full ROM of foot and ankle - Pending Discharge Pending Discharge Within 24 Hours: Yes Pending Discharge Date: 01/24/17 Pending Discharge Time: 11:00 ICD10 Worksheet Patient Problems: Problems Problem Status Onset Post-operative pain Acute
[2017-01-23] MEDS: ACETAMINOPHEN 325 MG TAB PO PRN (11:14)
== END 2017-01-23 13:59 | disposition home or self-care (01) ==
LOC: F3N 15:32
PROVIDERS: ADMIT Orthopaedic Surgery Sports Medicine; ATTEND Orthopaedic Surgery Sports Medicine
DX: R11.2 Nausea with vomiting, unspecified (principal); G89.18 Other acute postprocedural pain; K92.89 Other specified diseases of the digestive system
CPT/HCPCS: 72170; 97116; 97161; 97530; G0378; J1170